=== PATIENT | male | born 1995 | race Asian ===

== ENCOUNTER 2019-02-19 17:40 | Emergency (ER) | payer OTHER ==
[~2019-02-19] VITALS: Ht 175.3 cm; Wt 86.2 kg
--- NOTE | 2019-02-19 17:50 | NUR ---
PT PRESENTED TO THE ER WITH A C/O RLQ ABD PAIN. PT WAS AT HIS PMD'S OFFICE AND WAS SENT HERE FOR FURTHER TESTING. 18G IV STARTED IN RAC. BLOOD WAS DRAWN AND SENT TO LAB.
--- NOTE | 2019-02-19 18:15 | NUR ---
PT AMBULATED TO THE BATHROOM WITH A STEADY GAIT. URINE SAMPLE OBTAINED.
[2019-02-19 18:20] LABS: BASOPHILS % (AUTO) 0.5 % (0.0-2.0); EOSINOPHILS % (AUTO) 1.6 % (0.0-6.0); HEMATOCRIT 47 % (39-51); LYMPHOCYTES # (AUTO) 1.3 /CMM (0.8-4.8); LYMPHOCYTES % (AUTO) 23.3 % (20.0-44.0); MEAN CORPUSCULAR HGB CONC 32 g/dl (31.0-36.0); MEAN CORPUSCULAR VOLUME 67 fL (80-96); MONOCYTES # (AUTO) 0.5 /CMM (0.1-1.30); MONOCYTES % (AUTO) 8.9 % (2.0-12.0); NEUTROPHILS # (AUTO) 3.6 /CMM (1.8-8.9); NEUTROPHILS % (AUTO) 65.7 % (43.0-81.0); PLATELET COUNT (AUTO) 247 /CMM (150-450); RED BLOOD CELL COUNT(AUTO) 6.94 MIL/uL (4.5-6.0); WHITE BLOOD COUNT (AUTO) 5.5 K/uL (4.3-11.0)
[2019-02-19 18:23] LABS: APPEARANCE,URINE Clear (CLEAR); BILIRUBIN,URINE Negative (NEGATIVE); BLOOD, URINE Trace-intact Ery/uL (NEGATIVE); COLOR,URINE Yellow (YELLOW); KETONES,URINE Negative (NEGATIVE); LEUKOCYTE ESTERASE ,URINE Negative (NEGATIVE); NITRITE, URINE Negative (NEGATIVE); PROTEIN,URINE Negative (NEGATIVE); UGLUCOSE Negative (NEGATIVE); UROBILINOGEN,URINE 0.2 EU/dL (0.2)
[2019-02-19 18:28] LABS: BACTERIA,URINE None seen /HPF (None Seen); SQUAMOUS EPITHELIAL CELL,UR Few /HPF (None Seen); WBC,URINE 0-2 /HPF (0-3)
[2019-02-19 18:28] LABS: CALCIUM, SERUM 8.9 mg/dL (8.5-10.1); CREATININE 0.9 mg/dL (0.6-1.3); POTASSIUM 3.8 mmol/L (3.5-5.1)
[2019-02-19] MEDS ORDERED: IV NS 0.9% 1,000 ML BAG IV ONE (18:30)
[2019-02-19 18:38] LABS: ALBUMIN 3.9 g/dL (3.4-5.0); BILIRUBIN,TOTAL 0.2 mg/dL (0.2-1.0); TOTAL PROTEIN, SERUM 7.5 g/dL (6.4-8.2)
--- NOTE | 2019-02-19 18:50 | NUR ---
PT LEFT FOR CT VIA [facility]
--- NOTE | 2019-02-19 18:53 | NUR ---
PT WILL GO BACK TO ER 11. CARLO IN CT NOTIFIED.
--- NOTE | 2019-02-19 19:03 | NUR ---
PT RETURNED FROM CT.
[2019-02-19 20:07] LABS: LYMPHOCYTES % (MANUAL) 26 % (16-48); MONOCYTES % (MANUAL) 5 % (0-11.0); NEUTROPHILS % (MANUAL) 69 (42-76)
--- NOTE | 2019-02-19 20:24 | NUR ---
IV removed. Catheter intact and site benign. Pressure and 4x4 applied to site. No bleeding noted. Patient discharged to home in stable condition. Written and verbal after care instructions given. Patient verbalizes understanding of instruction AND RX. PT AMBULATED OUT WITH A STEADY GAIT. VSS.
[2019-02-19 20:26] VITALS: BP 118/72
[2019-02-19] MEDS ORDERED: IBUPROFEN 600 MG TABLET PO ONE (20:30)
== END 2019-02-19 20:25 | disposition home or self-care (01) ==
LOC: ER 17:40
DX: R10.11 Right upper quadrant pain (principal); R10.12 Left upper quadrant pain; Z60.2 Problems related to living alone
CPT/HCPCS: 36415; 74176; 80048; 80076; 81001; 83690; 85025; 85730; 99284; J7030; 81000-TC